=== PATIENT | female | born 1960 | race African-American/Black ===

== ENCOUNTER 2017-08-04 12:18 | Emergency (ER) | payer OTHER ==
[~2017-08-04] VITALS: Ht 162.6 cm; Wt 130.2 kg
[2017-08-04] MEDS ORDERED: NKM (12:28)
--- NOTE | 2017-08-04 12:42 | Emergency Room Report ---
History of Present Illness General Chief Complaint: Upper Respiratory Illness Source: Patient Present Illness HPI 57-year-old female presents to the emergency department complaining of persistent dry cough with nasal congestion some minor rhinorrhea and intermittent mucus in the throat x3 days. Patient denies fevers or chills she reports history of bronchitis in the past reports itching sensation in her throat but denies pain. I swelling in the lower extremities or history of heart problems. Patient reports cough is worse at night with some wheezing. Denies orthopnea. Denies CP, Palpitations, LOC, AMS, dizziness, Changes in Vision, Sensation, paresthesias, or a sudden severe headache. Allergies: Coded Allergies: PENICILLINS (Verified Allergy, Unknown, 08/04/17) Patient History Past Medical History: see triage record Past Surgical History: none Pertinent Family History: none Now: No Immunizations: UTD Reviewed Nursing Documentation: PMH: Agreed, PSxH: Agreed Nursing Documentation-PMH Past Medical History: No Stated History Review of Systems All Other Systems: negative except mentioned in HPI Physical Exam Vital Signs Date Time Temp Pulse Resp B/P (MAP) Pulse Ox O2 Delivery O2 Flow Rate FiO2 08/04/17 12:22 99.0 84 18 132/93 98 Room Air Sp02 EP Interpretation: reviewed, normal General Appearance: no apparent distress, alert, GCS 15, non-toxic Head: normocephalic, atraumatic Eyes: bilateral eye normal inspection, bilateral eye PERRL ENT: hearing grossly normal, normal pharynx, no angioedema, normal voice, TMs + canals normal, uvula midline, moist mucus membranes, nasal congestion Neck: full range of motion, supple/symm/no masses Respiratory: lungs clear, normal breath sounds, no wheezing, speaking full sentences Cardiovascular #1: regular rate, rhythm, no edema, normal capillary refill Rectal: deferred Musculoskeletal: back normal, gait/station normal, normal range of motion, non- tender Neurologic: alert, oriented x3, responsive, motor strength/tone normal, sensory intact, speech normal Psychiatric: judgement/insight normal, memory normal, mood/affect normal Skin: normal color, no rash, warm/dry, well hydrated Lymphatic: no adenopathy Medical Decision Making PA Attestation Dr. Street is my supervising Physician whom patient management has been discussed with. Diagnostic Impression: Primary Impression: Bronchitis ER Course 57-year-old female presents to the emergency department complaining of persistent dry cough with nasal congestion some minor rhinorrhea and intermittent mucus in the throat x3 days. Patient denies fevers or chills she reports history of bronchitis in the past reports itching sensation in her throat but denies pain. I swelling in the lower extremities or history of heart problems. Patient reports cough is worse at night with some wheezing. Denies orthopnea. Denies CP, Palpitations, LOC, AMS, dizziness, Changes in Vision, Sensation, paresthesias, or a sudden severe headache. Ddx considered but are not limited to URI, pneumonia, PE, strep pharyngitis, meningitis, CHF just to name a few. Vital signs: Pt.is afebrile VS are WNL H&PE are most consistent with bronchitis- due to viral etiology. no evidence of bacterial infection at this time, NAD, non-toxic in appearance. ORDERS: none required at this time, the diagnosis is clinical ED INTERVENTIONS: None required at this time. DISCHARGE: At this time pt. is stable for d/c to home. Will provide printed patient care instructions, and any necessary prescriptions. Care plan and follow up instructions have been discussed with the patient prior to discharge. Last Vital Signs Date Time Temp Pulse Resp B/P (MAP) Pulse Ox O2 Delivery O2 Flow Rate FiO2 08/04/17 12:22 99.0 84 18 132/93 98 Room Air Disposition: HOME, SELF-CARE Condition: Stable Patient Instructions: Upper Respiratory Infection, Adult Additional Instructions: Take medications as directed. Follow up with a Primary Care Provider in 3-5 days, even if your symptoms have resolved. --Please review list of primary care clinics, if you do not already have a primary care provider Return sooner to ED if new symptoms occur, or current symptoms become worse. Do not drink alcohol, drive, or operate heavy machinery while taking [ ] as this may cause drowsiness. - Please note that this Emergency Department Report was dictated using [employer]ogn[employer] caster technology software, occasionally this can lead to erroneous entry secondary to interpretation by the dictation equipment. Yoly Palomares Aug 04, 2017 12:42
[2017-08-04] MEDS ORDERED: NASAFLO NETI P1 EACH NS (12:55)
[2017-08-04] MEDS ORDERED: ALBUTEROL SULF8.5 GM INH (12:55)
[2017-08-04] MEDS ORDERED: PROMETHAZINE-C118 M1 ORAL (12:55)
[2017-08-04] MEDS ORDERED: GUAIFENESIN1200 MG PO (12:55)
[2017-08-04 12:59] VITALS: BP 132/93
== END 2017-08-04 14:00 | disposition home or self-care (01) ==
LOC: EMR 13:39
DX: J40 Bronchitis, not specified as acute or chronic (principal); Z88.0 Allergy status to penicillin
CPT/HCPCS: 99282

== ENCOUNTER 2018-07-12 15:29 | Emergency (ER) | payer OTHER ==
[~2018-07-12] VITALS: Ht 162.6 cm; Wt 129.3 kg
[~2018-07-12 15:29] MED LIST: ALBUTEROL SULF8.5 GM INH; GUAIFENESIN1200 MG PO; NASAFLO NETI P1 EACH NS; NKM; PROMETHAZINE-C118 M1 ORAL
[2018-07-12 16:33] VITALS: BP 126/80
[2018-07-12] MEDS ORDERED: ACETAMINOPHEN-1 EAC1 ORAL (17:23)
[2018-07-12] MEDS ORDERED: IBUPROFEN600 MG ORAL (17:23)
--- NOTE | 2018-07-12 17:31 | Diagnostic Imaging Report ---
Indications: Right knee pain when walking Technique: Three views of the right knee Comparison: None Findings: No acute fractures. No dislocations. Joint spaces are preserved. No radiopaque foreign body. Normal mineralization. Impression: No acute process
[2018-07-12 17:52] VITALS: BP 121/83
[2018-07-12 18:03] VITALS: BP 121/83
--- NOTE | 2018-07-15 22:11 | Emergency Room Report ---
History of Present Illness General Chief Complaint: Pain Source: Patient Present Illness HPI 58-year-old female presents ED complaining of right knee pain. Pain started 3 days ago. Started while walking. Denies any fall or injury. Pain is dull, 8 out of 10, nonradiating. Notes pain to the back of the knee and the calf. Concerned that she may have a DVT. Denies chest pain or shortness of breath. No other aggravating relieving factors. Denies any other associated symptoms Allergies: Coded Allergies: PENICILLINS (Verified Allergy, Unknown, 07/12/18) Patient History Past Medical History: none Past Surgical History: none Pertinent Family History: none Social History: Denies: smoking, alcohol use, drug use Now: No Immunizations: UTD Reviewed Nursing Documentation: PMH: Agreed; PSxH: Agreed Nursing Documentation-PMH Past Medical History: No History, Except For Review of Systems All Other Systems: negative except mentioned in HPI Physical Exam Vital Signs Date Time Temp Pulse Resp B/P (MAP) Pulse Ox O2 Delivery O2 Flow Rate FiO2 07/12/18 15:39 98.7 75 16 132/84 95 Room Air 98.8 Sp02 EP Interpretation: reviewed, normal General Appearance: no apparent distress, alert, GCS 15, non-toxic, obese Head: normocephalic Eyes: bilateral eye normal inspection, bilateral eye PERRL ENT: normal ENT inspection Neck: normal inspection Respiratory: normal inspection Cardiovascular #1: normal inspection Gastrointestinal: normal inspection Rectal: deferred Genitourinary: no CVA tenderness Musculoskeletal: normal range of motion, calf tenderness, tender - R knee Neurologic: alert, oriented x3, responsive, motor strength/tone normal, sensory intact, speech normal Psychiatric: normal inspection Skin: normal inspection Lymphatic: normal inspection Procedures Splinting Splinting : Consent: Verbal Pre-Made Type: DAVINA wrap Pre-Proc Neuro Vasc Exam: normal Post-Proc Neuro Vasc Exam: normal Patient Tolerated: Well Complications: None Medical Decision Making Diagnostic Impression: Primary Impression: Knee pain, right Qualified Codes: M25.561 - Pain in right knee ER Course Hospital Course 58-year-old F presents to ED complaining of R knee pain. no trauma Differential diagnoses include: Fracture, dislocation, sprain, contusion Clinical course Patient placed on stretcher. After initial history, physical exam reveals a obese female no acute distress. There is full range of motion in the right knee. No crepitus or bruising or deformity. There is some palpable tenderness to the calf. However given morbid obesity unable to determine whether right calf is more swollen than the left calf. X-rays ordered, duplex ultrasound ordered Duplex ultrasound shows no DVT Xrays read shows no acute fracture/dislocation. placed in davina wrap discussed findings with patient. safe for discharge with close outpatient followup. ' Diagnosis - R knee pain Stable and discharged to home with prescription for Motrin, tylenol #3. apply ice, keep elevated. weight bear as tolerated. Followup with PMD. Return to ED if symptoms recur or worsen Other X-Ray Diagnostic Results Other X-Ray Diagnostic Results : X-Ray ordered: R knee # of Views/Limited Vs Complete: 3 View Indication: Pain EP Interpretation: Yes Interpretation: no dislocation, no soft tissue swelling, no fractures Impression: No acute disease Electronically Signed by: Electronically signed by Pantera Ingram MD CT/MRI/US Diagnostic Results CT/MRI/US Diagnostic Results : Imaging Test Ordered: Duplex US Impression no DVT. no bakers cyst Last Vital Signs Date Time Temp Pulse Resp B/P (MAP) Pulse Ox O2 Delivery O2 Flow Rate FiO2 07/12/18 18:03 98.8 80 16 121/83 98 Room Air 98.8 Status: improved Disposition: HOME, SELF-CARE Condition: Stable Scripts Ibuprofen* (MOTRIN*) 600 Mg Tablet 600 MG ORAL THREE TIMES A DAY, #20 TAB 0 Refills Prov: Yoly Palomares 07/12/18 Acetaminophen With Codeine (T#3) (TYLENOL #3 TAB*) Y Tab 1 TAB ORAL Q6HR PRN for For Pain, #12 TAB Prov: Yoly Palomares 07/12/18 Patient Instructions: Knee Pain, Bzir-ya-Czgy Additional Instructions: Take medications as directed. Follow up with an BAND MANAGER in 3-5 days, even if your symptoms have resolved. If symptoms persist additional diagnostic testing may be required at the discretion of your PCP or Ortho Specialist. --Please review list of primary care clinics, if you do not already have a primary care provider who can give you an Orthopedic Referral. Return sooner to ED if new symptoms occur, or current symptoms become worse. Do not drink alcohol, drive, or operate heavy machinery while taking Tylenol # 3 as this may cause drowsiness. - Please note that this Emergency Department Report was dictated using [employer] worker technology software, occasionally this can lead to erroneous entry secondary to interpretation by the dictation equipment. Pantera Ingram MD Jul 15, 2018 22:11
== END 2018-07-12 19:03 | disposition home or self-care (01) ==
LOC: EMR 16:11
DX: M25.561 Pain in right knee (principal); Z88.0 Allergy status to penicillin
CPT/HCPCS: 93971; 99284